=== PATIENT | male | born 1955 | race Hispanic/Latino ===

== ENCOUNTER 2016-05-04 10:06 | Emergency (ER) | payer OTHER ==
[~2016-05-04] VITALS: Ht 170.2 cm; Wt 94.7 kg
[~2016-05-04 10:06] MED LIST: ALBUTEROL2.5 MG/3 M IH; Ecotrin PO; Methadone PO; PREDNISONE10 MG PO; PREDNISONE5 MG PO; PROAIR HFA8.5 GM IH; SPIRIVA1 INHALATI IH; SYMBICORT60 INHALAT IH; VENTOLIN HFA18 GM IH; Xanax PO
[2016-05-04 10:40] LABS: POINT-OF-CARE METER ID UU14100415
[2016-05-04 10:53] LABS: HEMATOCRIT 35.2 % (38.0-50.0); MCH 26.4 PG (29.0-34.0); MCHC 32.1 G/DL (30.0-36.0); MCV 82.2 FL (86-99); MEAN PLAT.VOLUME 9.7 uM^3 (9.0-12.4); PLATELET COUNT 232 K/uL (156-360); RBC DIS.WIDTH-CV 12.2 % (11.8-14.6); RBC DIS.WIDTH-SD 35.9 % (39-53); RED BLOOD COUNT 4.28 M/uL (4.00-5.50); WHITE BLOOD COUNT 12.2 K/uL (4.1-10.2)
[2016-05-04 11:04] LABS: CHLORIDE 102 mEq/L (99-109); POTASSIUM 3.8 mEq/L (3.7-5.4); SODIUM 138 mEq/L (136-147)
[2016-05-04 11:06] LABS: GLUCOSE 119 mg/dL (70-99)
[2016-05-04 11:07] LABS: ANION GAP 11 MEQ/L (2-14)
[2016-05-04 11:08] LABS: TOTAL BILIRUBIN 0.5 mg/dL (0.0-1.0)
[2016-05-04 11:09] LABS: ALKALINE PHOSPHATASE 67 IU/L (3-129)
[2016-05-04 11:10] LABS: GFR ESTIMATE (CALCULATED) > 59 mL/min/
[2016-05-04 11:11] LABS: UREA NITROGEN (BUN) 29 mg/dL (9-23)
[2016-05-04 11:13] LABS: LIPASE 24 U/L (1.0-51.0)
[2016-05-04 12:38] LABS: ADD MIUA? YES; BILIRUBIN NEGATIVE; BLOOD NEGATIVE; COLOR AMBER ((YELLOW)); GLUCOSE (STRIP) NEGATIVE; KETONES 5; LEUKOCYTES NEGATIVE; NITRITE NEGATIVE; PROTEIN (STRIP) 30; SPECIFIC GRAVITY 1.028 (1.000-1.030); UROBILINOGEN 0.2 MG/DL (0.2-1.0)
[2016-05-04 13:00] VITALS: BP 115/51
[2016-05-04 13:20] LABS: INFLUENZA A VIRAL ANTIGEN NEGATIVE; INFLUENZA B VIRAL ANTIGEN NEGATIVE
[2016-05-04 13:27] LABS: RED BLOOD CELLS RARE /HPF (0-5); WHITE BLOOD CELLS NONE SEEN /HPF (0-5)
[2016-05-04 13:28] LABS: BACTERIA 1+ /HPF; EPITHELIAL CELLS NONE SEEN /HPF; MUCUS 3+ /LPF; UCUL ADDED? NO
[2016-05-04] MEDS ORDERED: ZOFRAN4 MG PO (14:11)
[2016-05-04] MEDS ORDERED: NAPROSYN500 MG PO (14:12)
[2016-05-05] MEDS ORDERED: METHADONE10 MG/1 M1 PO (15:47)
[2016-05-05] MEDS ORDERED: ATIVAN1 MG PO (15:48)
[2016-05-05] MEDS ORDERED: ZOLPIDEM TARTRAT5 MG PO (15:48)
[2016-05-05] MEDS ORDERED: SYMBICORT60 INHALAT IH (15:49)
[2016-05-05] MEDS ORDERED: NITROSTAT0.4 MG SL (15:49)
== END 2016-05-04 14:42 | disposition home or self-care (01) ==
LOC: EME 10:06
PROVIDERS: Emergency Medicine
DX: R50.9 Fever, unspecified (principal); R05 Cough; Z72.0 Tobacco use
CPT/HCPCS: 71020; 80053; 81003; 82948; 83690; 85027; 87040; 87077; 87186; 87502; 87801; 93005; 99281; 99285; J7030

== ENCOUNTER 2016-05-05 12:15 | Inpatient (IN) | payer OTHER ==
[~2016-05-05] VITALS: Ht 170.2 cm; Wt 93.0 kg
[~2016-05-05 12:15] MED LIST changes: +NAPROSYN500 MG PO; +ZOFRAN4 MG PO
[2016-05-05 13:15] LABS: EOSINOPHIL (%) 0 % (0-5); HEMATOCRIT 33.7 % (38.0-50.0); IMMATURE GRANULOCYTE (%) 0.3 % (0.0-0.7); IMMATURE GRANULOCYTE COUNT 0.4 K/uL; LYMPHOCYTE COUNT 1.2 K/uL (1.0-2.8); MCH 26.6 PG (29.0-34.0); MEAN PLAT.VOLUME 9.5 uM^3 (9.0-12.4); MONOCYTE COUNT 0.7 K/uL (0-0.8); NEUTROPHIL (%) 86.4 % (45-76); NEUTROPHIL COUNT 12.7 K/uL (1.8-6.4); PLATELET COUNT 214 K/uL (156-360); RBC DIS.WIDTH-CV 12.2 % (11.8-14.6); RBC DIS.WIDTH-SD 36.2 % (39-53); RED BLOOD COUNT 4.06 M/uL (4.00-5.50); WHITE BLOOD COUNT 14.7 K/uL (4.1-10.2)
[2016-05-05 13:26] LABS: CHLORIDE 101 mEq/L (99-109); POTASSIUM 3.7 mEq/L (3.7-5.4); SODIUM 138 mEq/L (136-147)
[2016-05-05 13:27] LABS: GLUCOSE 137 mg/dL (70-99)
[2016-05-05 13:29] LABS: ANION GAP 12 MEQ/L (2-14)
[2016-05-05 13:31] LABS: GFR ESTIMATE (CALCULATED) > 59 mL/min/
[2016-05-05 13:32] LABS: UREA NITROGEN (BUN) 22 mg/dL (9-23)
[2016-05-05] MEDS ORDERED: METHADONE10 MG/1 M1 PO (15:47)
[2016-05-05] MEDS ORDERED: ATIVAN1 MG PO (15:48)
[2016-05-05] MEDS ORDERED: ZOLPIDEM TARTRAT5 MG PO (15:48)
[2016-05-05] MEDS ORDERED: NITROSTAT0.4 MG SL (15:49)
[2016-05-05] MEDS ORDERED: SYMBICORT60 INHALAT IH (15:49)
[2016-05-05 17:22] VITALS: BP 129/87
[2016-05-05 20:00] VITALS: BP 126/67
[2016-05-05 23:34] VITALS: BP 105/53
[2016-05-06 03:42] VITALS: BP 97/57
[2016-05-06 04:44] VITALS: BP 128/72
[2016-05-06 06:50] LABS: MCH 26.9 PG (29.0-34.0); MCHC 32.3 G/DL (30.0-36.0); MCV 83.3 FL (86-99); MEAN PLAT.VOLUME 9.8 uM^3 (9.0-12.4); PLATELET COUNT 184 K/uL (156-360); RBC DIS.WIDTH-CV 12.6 % (11.8-14.6); RBC DIS.WIDTH-SD 38.6 % (39-53); RED BLOOD COUNT 3.72 M/uL (4.00-5.50)
[2016-05-06 06:52] LABS: WHITE BLOOD COUNT 9.8 K/uL (4.1-10.2)
[2016-05-06 07:11] LABS: ANION GAP 8 MEQ/L (2-14); CHLORIDE 102 MEQ/L (99-109); GFR ESTIMATE (CALCULATED) > 59 mL/min/; GLUCOSE 123 mg/dL (70-99); IRON 16 MCG/DL (35-150); POTASSIUM 3.7 MEQ/L (3.7-5.4); SAMPLE HEMOLYSIS CHECK 0; SAMPLE ICTERIC CHECK 0; SAMPLE LIPEMIA CHECK 0; SODIUM 137 MEQ/L (136-147); UREA NITROGEN (BUN) 17 mg/dL (9-23)
[2016-05-06 07:43] VITALS: BP 115/67
[2016-05-06 11:19] LABS: HBSG INDEX 0.28; HPCA INDEX 0.14
[2016-05-06 11:29] VITALS: BP 107/64
[2016-05-06 15:07] VITALS: BP 107/65
[2016-05-06 20:30] VITALS: BP 112/83
[2016-05-07 00:35] VITALS: BP 112/58
[2016-05-07 03:38] VITALS: BP 118/70
[2016-05-07 07:09] LABS: EOSINOPHIL COUNT 0.1 K/uL (0-0.3); HEMATOCRIT 34.2 % (38.0-50.0); IMMATURE GRANULOCYTE (%) 0.3 % (0.0-0.7); LYMPHOCYTE COUNT 1.6 K/uL (1.0-2.8); MCH 26.3 PG (29.0-34.0); MCHC 31.3 G/DL (30.0-36.0); MONOCYTE (%) 8.8 % (3-12); MONOCYTE COUNT 0.6 K/uL (0-0.8); NEUTROPHIL (%) 66.9 % (45-76); NEUTROPHIL COUNT 4.8 K/uL (1.8-6.4); PLATELET COUNT 214 K/uL (156-360); RBC DIS.WIDTH-CV 12.7 % (11.8-14.6); RED BLOOD COUNT 4.07 M/uL (4.00-5.50); WHITE BLOOD COUNT 7.2 K/uL (4.1-10.2)
[2016-05-07 07:49] VITALS: BP 115/63
[2016-05-07 10:42] VITALS: BP 131/71
[2016-05-07 15:35] VITALS: BP 116/65
[2016-05-07 19:36] VITALS: BP 118/65
[2016-05-08 00:53] VITALS: BP 133/70
[2016-05-08 04:08] VITALS: BP 116/57
[2016-05-08 08:00] VITALS: BP 126/58
[2016-05-08 11:00] VITALS: BP 114/56
[2016-05-08] MEDS ORDERED: FERROUS SULFAT325 MG PO (11:14)
[2016-05-08 15:45] VITALS: BP 139/67
== END 2016-05-08 17:17 | disposition home or self-care (01) | DRG 871 ==
LOC: EME 12:15 → EDOF 15:33 → 5SOUTH 15:33
PROVIDERS: Family Medicine; Internal Medicine Infectious Disease; Nurse Practitioner Adult Health; Physician Assistant
DX: A40.0 Sepsis due to streptococcus, group A (principal); I33.0 Acute and subacute infective endocarditis; F11.20 Opioid dependence, uncomplicated; F33.9 Major depressive disorder, recurrent, unspecified; R01.1 Cardiac murmur, unspecified; D50.9 Iron deficiency anemia, unspecified; B95.4 Other streptococcus as the cause of diseases classified elsewhere; J43.1 Panlobular emphysema; F17.210 Nicotine dependence, cigarettes, uncomplicated; F41.9 Anxiety disorder, unspecified; E66.9 Obesity, unspecified; K43.9 Ventral hernia without obstruction or gangrene; J45.909 Unspecified asthma, uncomplicated; K44.9 Diaphragmatic hernia without obstruction or gangrene; N28.1 Cyst of kidney, acquired; Z88.1 Allergy status to other antibiotic agents; Z68.32 Body mass index [BMI] 32.0-32.9, adult; Z82.49 Family history of ischemic heart disease and other diseases of the circulatory system
CPT/HCPCS: 71020; 71250; 74176; 76937; 80048; 80053; 81003; 82948; 83540; 83605; 83690; 84466; 85025; 85027; 86803; 86850; 86900; 86901; 86920; 87040; 87077; 87186; 87340; 87502; 87801; 93005; 93306; 93971; 94640; 94640 76; 99202; 99281; 99285; J0456; J0696; J1580; J1650; J2540; J7030; J7050

== ENCOUNTER 2016-06-21 10:48 | Emergency (ER) | payer OTHER ==
[~2016-06-21] VITALS: Ht 170.2 cm; Wt 91.7 kg
[~2016-06-21 10:48] MED LIST changes: +ATIVAN1 MG PO; +FERROUS SULFAT325 MG PO; +METHADONE10 MG/1 M1 PO; +NITROSTAT0.4 MG SL; +ZOLPIDEM TARTRAT5 MG PO
[2016-06-21 11:33] LABS: ADD MIUA? NO; BILIRUBIN NEGATIVE; BLOOD NEGATIVE; COLOR YELLOW ((YELLOW)); GLUCOSE (STRIP) NEGATIVE; KETONES NEGATIVE; LEUKOCYTES NEGATIVE; NITRITE NEGATIVE; PROTEIN (STRIP) NEGATIVE; UCUL ADDED? NO; UROBILINOGEN 0.2 MG/DL (0.2-1.0)
[2016-06-21 11:36] LABS: HEMATOCRIT 36.4 % (38.0-50.0); MCH 24.8 PG (29.0-34.0); MCHC 30.5 G/DL (30.0-36.0); MCV 81.4 FL (86-99); MEAN PLAT.VOLUME 9.8 uM^3 (9.0-12.4); PLATELET COUNT 247 K/uL (156-360); RBC DIS.WIDTH-CV 12.2 % (11.8-14.6); RBC DIS.WIDTH-SD 36.3 % (39-53); RED BLOOD COUNT 4.47 M/uL (4.00-5.50); WHITE BLOOD COUNT 5.4 K/uL (4.1-10.2)
[2016-06-21 11:42] LABS: CHLORIDE 101 mEq/L (99-109); POTASSIUM 4.3 mEq/L (3.7-5.4); SODIUM 139 mEq/L (136-147)
[2016-06-21 11:45] LABS: GLUCOSE 131 mg/dL (70-99)
[2016-06-21 11:46] LABS: ANION GAP 12 MEQ/L (2-14); TOTAL BILIRUBIN 0.4 mg/dL (0.0-1.0)
[2016-06-21 11:48] LABS: ALKALINE PHOSPHATASE 60 IU/L (3-129); GFR ESTIMATE (CALCULATED) > 59 mL/min/
[2016-06-21 11:49] LABS: UREA NITROGEN (BUN) 17 mg/dL (9-23)
[2016-06-21] MEDS ORDERED: CITRATE OF MAG296 ML PO (13:06)
[2016-06-21 13:14] VITALS: BP 107/45
== END 2016-06-21 13:16 | disposition home or self-care (01) ==
LOC: EME 10:48
DX: R10.13 Epigastric pain (principal); K59.00 Constipation, unspecified; F11.90 Opioid use, unspecified, uncomplicated; J44.9 Chronic obstructive pulmonary disease, unspecified; J45.909 Unspecified asthma, uncomplicated; Z87.891 Personal history of nicotine dependence
CPT/HCPCS: 74022; 80053; 81003; 85027; 99281; 99284